=== PATIENT | female | born 1990 | race Two or more races ===

== ENCOUNTER 2017-05-06 19:07 | Inpatient (IN) | payer OTHER ==
--- NOTE | ~2017-05-06 | DS ---
Unit #: [id number] #: [id number] Patient: ADDY CARDONA [id number] [address] [address] [id number] I MR#: [id number] NAME: ADDY CARDONA. ROOM: Counts include 234 beds at the [facility] Age: 26 Sex: F Admission Date: 05/06/2017 : 1990 Discharge Date: 05/08/2017 Attending Physician: Honey Smith M.D. Primary Care Physician: Primary Care Physician No DISCHARGE SUMMARY ADMITTING DIAGNOSIS Symptomatic anemia. DISCHARGE DIAGNOSES Iron-deficiency anemia, B12 deficiency, and hypocalcemia. HOSPITAL COURSE A 26-year-old female from [facility] was admitted with the generalized weakness, lightheadedness, and dizzy spells. On her admission, she was found to have severe iron-deficiency anemia with hemoglobin was 4.3. She received iron transfusion and received three blood transfusions. Hemoglobin has increased up to 8.1. She is asymptomatic now. She is stable to be discharged home to be followed with the primary care physician. CONDITION AT DISCHARGE Stable. DIAGNOSTIC STUDIES LABORATORY RESULTS: Hemoglobin is 8.1, hematocrit 27, MCV 64.1, white cell count is 7.3, and platelet 316. B12 is 254. Calcium is 8.1. SPECIAL INSTRUCTIONS The patient had HIV test drawn, which is pending. The patient has been instructed to call the [facility] office for the HIV test results. DISCHARGE MEDICATIONS Include ferrous sulfate, B12 1000 mcg daily, ergocalciferol 50,000 units weekly, calcium with vitamin D 500 plus 400 b.i.d. DISPOSITION To home. Dictated by... Love Mims/candie TD: 05/08/2017 14:25 JOB #: [id number] Unit #: [id number] #: [id number] Patient: ADDY CARDONA DISCHARGE SUMMARY Page 1 of 1 X Truong Chahal MD DISCHARGE SUMMARY
--- NOTE | ~2017-05-06 | HP ---
Unit #: [id number] #: [id number] Patient: ADDY CARDONA [id number] [address] [address] [id number] I MR#: [id number] NAME: ADDY CARDONA. ROOM: [facility] Age: 26 Sex: F Admission Date: 05/06/2017 : 1990 Attending Physician: Violet Nazario M.D. HISTORY AND PHYSICAL CHIEF COMPLAINT Symptomatic microcytic anemia. HISTORY OF PRESENT ILLNESS This pleasant 26-year-old female from [facility], currently living in the [facility] for the past five years, is admitted for anemia. The patient states that she was well until the past month or so when she began to experience dizziness and headaches. Yesterday, her symptoms were worse. She felt very lightheaded and actually fell with dizziness. She presented to this emergency department tonight where her hemoglobin is 4.3, hematocrit is 16.4, and white blood count is 3.6, but she has a normal platelet count. She denies heavy menstrual periods. She does experience constipation but no melena or hematochezia. She once required some sort of oral treatment for anemia while in [place]. She denies any symptoms of malaria and has not traveled outside of the [place] for the past five years. On the manual differential, there was noted to be a possible malarial parasite. Will check a malaria screen. She denies sickle cell anemia or known thalassemia. PAST MEDICAL HISTORY 1. Anemia. 2. Chronic contraction of the right hand since . ALLERGIES None. HOME MEDICATIONS None. FAMILY HISTORY Negative for anemia. SOCIAL HISTORY The patient is originally from [facility] and has been living in the [facility] for the past five years. She has not traveled outside the states for the past five years. She is a lifelong nonsmoker and does not drink alcohol. REVIEW OF SYSTEMS Somewhat difficult to obtain due to language barrier. 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 PHYSICAL EXAMINATION Unit #: [id number] #: [id number] Patient: ADDY CARDONA GENERAL: A very pleasant 26-year-old female who currently is in no acute distress. VITAL SIGNS: Temperature 98.2, pulse 77, respirations 18, and blood pressure 117/62. HEENT: Eyes PERRLA. Extraocular muscles are intact. Pharynx is benign. NECK: Supple without adenopathy or thyromegaly. CHEST: Clear. CARDIAC: Normal S1 and S2. A soft systolic murmur heard along the left sternal border. ABDOMEN: Bowel sounds are present. No hepatosplenomegaly, tenderness, or masses. EXTREMITIES: Without clubbing, cyanosis, or edema. Pedal pulses are present. LYMPHATICS: No cervical, supraclavicular, or axillary lymphadenopathy. NEUROLOGIC: Patient is awake, alert, and oriented. Cranial nerves are intact. She has some spasticity of her right arm with contraction of her right hand, but the rest of her neurologic examination is normal. DIAGNOSTIC STUDIES ADMISSION LABORATORY: Hematocrit is 16.4, hemoglobin 4.2, MCV 57, and white blood count 3.6, but normal platelet count. SMA-12: Potassium is 3.1 and CO2 is 20. Beta hCG is negative. ASSESSMENT 1. Symptomatic microcytic anemia. 2. Hypokalemia. 3. Possible malaria parasite on manual differential noted by the lab. Patient denies any symptoms of malaria and has not been treated for malaria in the past. She has not left the [place] for the past five years. Also of note, her bilirubin is normal. PLANS 1. Transfuse. 2. Anemia workup including hemoglobin electrophoresis. 3. Check stool for Hemoccult. 4. Replace potassium and check magnesium. 5. Will request a malaria screen. 1. Dictated by Love Causey/jamie TD: 05/06/2017 22:41 JOB #: [id number] HISTORY AND PHYSICAL Page 1 of 1 X Violet Nazario MD X HISTORY AND PHYSICAL
--- NOTE | ~2017-05-06 | EKG ---
PATIENT: ADDY CARDONA UNIT #: [id number] Ventricular Rate: 87 BPM Atrial Rate: 87 BPM P-R Interval: 140 ms QRS Duration: 84 ms Q-T Interval: 386 ms QTC Calculation(Bezet): 464 ms P [place]: 67 degrees Calculated R [place]: 45 degrees Calculated T [place]: 19 degrees Diagnosis Line: Normal sinus rhythm Diagnosis Line: Nonspecific T wave abnormality Diagnosis Line: Abnormal ECG Diagnosis Line: No previous ECGs available Diagnosis Line: Confirmed by CIERA COKER MD ([id number]) on Diagnosis Line: 05/07/2017 6:54:10 AM INTERPRETING MDPrakash SAMUEL
[2017-05-06 20:37] LABS: BASOPHIL# 0.1 X10e3 (0-0.3); BASOPHIL% 2.3 % (0-2.5); EOSINOPHIL# 0.1 X10e3 (0-0.7); EOSINOPHIL% 1.6 % (0.0-7.0); HEMATOCRIT 16.4 % (35.0-45.0); LYMPHOCYTE# 1.3 X10e3 (1.0-3.5); LYMPHOCYTE% 35.7 % (17.0-45.0); MEAN CORPUSCULAR HEMOGLOBIN 14.9 PG (28-34); MEAN CORPUSCULAR HGB CONC 26.2 g/dL (30-36); MEAN PLATELET VOLUME 8.3 FL (6.5-11.5); MONOCYTE# 0.3 X10e3 (0-1.0); NEUTROPHIL# 1.9 X10e3 (1.5-7.1); NEUTROPHIL% 51.4 % (40-75); PLATELET COUNT 448 X10e3 (140-420); RED BLOOD COUNT 2.88 X10e (3.90-5.30); RED CELL DISTRIBUTION WIDTH 21.4 % (11.0-15.5); WHITE BLOOD COUNT 3.6 X10e3 (4.0-10.5)
[2017-05-06 20:41] LABS: DIFF IND YES; HEMOGLOBIN 4.3 gm/dL (12.0-16.0)
[2017-05-06 21:01] LABS: ALBUMIN SERUM 4.1 g/dL (3.5-5.0); ALKALINE PHOSPHATASE 66 U/L (32-92); ALT (SGPT) 11 U/L (10-40); AST (SGOT) 15 U/L (10-42); BILIRUBIN,TOTAL 0.2 mg/dL (0.2-2.0); BLOOD UREA NITROGEN 5 mg/dL (9-23); CALCIUM SERUM 8.5 mg/dL (8.4-10.2); CARBON DIOXIDE 20 mmol/L (22-31); CHLORIDE 109 mmol/L (100-111); CREATININE SERUM 0.4 mg/dL (0.6-1.4); GLOM FILT RATE Estimated 143.8 mL/min (>60); GLUCOSE FASTING 80 mg/dL (70-110); POTASSIUM 3.1 mmol/L (3.5-5.1); PROTEIN TOTAL SERUM 7.4 g/dL (6.0-8.3); SODIUM 136 mmol/L (135-145)
[2017-05-06 21:03] LABS: BILIRUBIN, DIRECT <0.1 mg/dL (0.0-0.2); BILIRUBIN,INDIRECT 0.1 mg/dL (0.0-0.9)
[2017-05-06 21:46] LABS: PLATELET ESTIMATE INCREASED (NORMAL)
[2017-05-06 21:58] LABS: DIFFERENTIAL COMMENT Y
[2017-05-06 22:02] LABS: URINE SOURCE CLEAN CATCH
[2017-05-06 22:06] LABS: URINE APPEARANCE CLEAR; URINE BILIRUBIN NEG (NEG); URINE BLOOD NEG (NEG); URINE COLOR YELLOW; URINE GLUCOSE NEG (NEG); URINE KETONE NEG (NEG); URINE LEUKOCYTE ESTERASE NEG (NEG); URINE NITRATE NEG (NEG); URINE PH 5.5 (5-8); URINE PROTEIN NEG (NEG); URINE SPECIFIC GRAVITY 1.005 (1.003-1.035); URINE UROBILINOGEN 0.2 MG/DL (NEG)
[2017-05-06 22:13] LABS: CULTURE INDICATED? NO
[2017-05-06 22:55] LABS: FOLATE (FOLIC ACID) 14.3 ng/mL (>5.8)
[2017-05-07 09:23] LABS: HEMATOCRIT 23.8 % (35.0-45.0); MEAN CORPUSCULAR HEMOGLOBIN 18.1 PG (28-34); MEAN PLATELET VOLUME 8.8 FL (6.5-11.5); RED BLOOD COUNT 3.81 X10e (3.90-5.30); RED CELL DISTRIBUTION WIDTH 23.7 % (11.0-15.5); WHITE BLOOD COUNT 5.2 X10e3 (4.0-10.5)
[2017-05-07 09:29] LABS: HEMOGLOBIN 6.9 gm/dL (12.0-16.0)
[2017-05-07 09:30] LABS: MEAN CELL VOLUME 62.5 FL (83-96)
[2017-05-07 10:20] LABS: BUN/CREATININE RATIO 23.33; CALCIUM SERUM 8.1 mg/dL (8.4-10.2); CREATININE SERUM 0.3 mg/dL (0.6-1.4); GLOM FILT RATE Estimated 158.1 mL/min (>60); MAGNESIUM 1.8 mg/dL (1.6-3.0)
[2017-05-07 10:25] LABS: POTASSIUM 4.7 mmol/L (3.5-5.1)
[2017-05-07 17:23] LABS: HEMATOCRIT 28.2 % (35.0-45.0); HEMOGLOBIN 8.4 gm/dL (12.0-16.0)
[2017-05-08 06:31] LABS: HEMOGLOBIN 8.1 gm/dL (12.0-16.0); MEAN CELL VOLUME 64.1 FL (83-96); MEAN CORPUSCULAR HEMOGLOBIN 19.4 PG (28-34); MEAN CORPUSCULAR HGB CONC 30.2 g/dL (30-36); MEAN PLATELET VOLUME 9.1 FL (6.5-11.5); RED BLOOD COUNT 4.2 X10e (3.90-5.30); RED CELL DISTRIBUTION WIDTH 27.6 % (11.0-15.5); WHITE BLOOD COUNT 7.3 X10e3 (4.0-10.5)
[2017-05-08] MEDS ORDERED: B12 HEALTH1000 MCG/1 PO (14:00)
[2017-05-08] MEDS ORDERED: FERROUS GLUCON324 M1 PO (14:02)
[2017-05-08] MEDS ORDERED: ACETAMINOPHEN325 MG PO (14:06)
[2017-05-08] MEDS ORDERED: CALCIUM 500 +1 EAC2 PO (14:07)
[2017-05-08] MEDS ORDERED: LOC PO (14:07)
[2017-05-08] MEDS ORDERED: VITAMIN D350000 UNIT PO (14:08)
== END 2017-05-08 15:40 | disposition home or self-care (01) | DRG 812 ==
LOC: CED 19:07 → CEDOF 22:00 → C3A PCU 22:00 → CEDOF 22:05 → CED 22:05 → C3A PCU 23:48 → CEDOF 23:48 → C3A PCU 05-07 06:24
PROVIDERS: Emergency Medicine; Internal Medicine
PROC: 30233N1 Transfusion of Nonautologous Red Blood Cells into Peripheral Vein, Percutaneous Approach (ICD-10-PCS; principal; 2017-05-06)
DX: D50.9 Iron deficiency anemia, unspecified (principal); E83.51 Hypocalcemia; E53.8 Deficiency of other specified B group vitamins; E87.6 Hypokalemia
CPT/HCPCS: 36415; 36430; 80048; 80076; 81003; 82607; 82728; 82746; 82947; 83540; 83550; 83615; 83735; 84443; 84703; 85014; 85018; 85025; 85027; 85044; 86850; 86900; 86901; 86923; 87207; 87806; 93005; 99285; J2916; J3420; P9016